=== PATIENT | female | born 1980 | race Caucasian/White ===

== ENCOUNTER → 2017-07-20 | Outpatient (CLI) | payer OTHER ==
[~2017-07-20] MED LIST: ALBU90OI INH; ALPR.5; AZIT250 PO; BENZ100A PO; BIRTH CONTROL; BUSP15 PO; BUSP5 PO; Bactrim Ds Tab1 EACH PO; CIPR250 PO; CITA20; CODBUTACEC; CRUTCH3 USE; Cipro250 MG PO; DIPATR PO; DIVA250EC; DIVA250ER PO; DOXE10; DULO30 PO; ERYT.5TO LEFTEYE; ESCI20; FAMO20 PO; HYDACE5 PO; HYDACE5325 PO; HYDGUAL120 PO; IBUP600 PO; IBUP800 PO; LIOT25 PO; LITH300ER PO; LORA1 PO; MULVITMINE; NAPR500 PO; OLAN2.5 PO; OLAN7.5 PO; OXYACE5T; OXYACE5T PO; OXYM.05NI; PRED10 PO; PRED20 PO; PROACE50 PO; PROC10 PO; PSEU120ER PO; Pyridium100 MG PO; Pyridium200 MG PO; RXHYD5325 PO; RXPROACE PO; SERT50; SIMV10 PO; TOPI50 PO; VENL25 PO; Vitamin D PO; [UNRECOGNIZED DRUG - OTHER]
== END | disposition home or self-care (01) ==
LOC: LAB 16:11 → LAB SHORT 16:11
DX: R35.0 Frequency of micturition (principal); R30.0 Dysuria
CPT/HCPCS: 87077; 87086; 87186

== ENCOUNTER → 2018-01-30 | Outpatient (CLI) | payer OTHER ==
[2018-01-30 18:18] LABS: U Amphetamine Screen Not Detected; U Barbituate Screen Not Detected; U Benzodiazapine Screen Not Detected; U Buprenorphine Screen Not Detected; U Cannabinoids Screen DETECTED; U Cocaine Screen Not Detected; U Methadone Screen Not Detected; U Methamphetamine Screen Not Detected; U Opiates Screen Not Detected; U Oxycodone Screen Not Detected; U Phencyclidine Screen Not Detected; U Propoxyphene Screen Not Detected
== END | disposition home or self-care (01) ==
LOC: LAB 17:46 → LAB SHORT 17:46
PROVIDERS: Internal Medicine
DX: Z51.81 Encounter for therapeutic drug level monitoring (principal); Z79.891 Long term (current) use of opiate analgesic

== ENCOUNTER → 2018-10-23 | Outpatient (CLI) | payer OTHER ==
[2018-10-25 14:07] LABS: HPV 16 Negative (Negative); HPV 18 Negative (Negative); HPV OTHER HR TYPES Negative (Negative)
== END | disposition home or self-care (01) ==
LOC: LAB SHORT 13:35 → LAB 13:35
PROVIDERS: Nurse Practitioner Family
DX: Z12.4 Encounter for screening for malignant neoplasm of cervix (principal)
CPT/HCPCS: 87624; G0123

== ENCOUNTER → 2018-12-06 | Outpatient (CLI) | payer OTHER | END | disposition home or self-care (01) | LOC: LAB EV 19:14 → LAB SHORT 19:14 | DX: N39.0 Urinary tract infection, site not specified (principal) | CPT/HCPCS: 87077; 87086; 87186 ==